=== PATIENT | female | born 1935 | race Caucasian/White ===

== ENCOUNTER 2021-11-13 18:39 | Inpatient (IN) | payer OTHER ==
[2021-11-13] MEDS ORDERED: METOPROLOL TARTRATE 25 MG TABLET (FP) PO ONE (19:25)
[2021-11-13] MEDS ORDERED: METOPROLOL TARTRATE 5 MG/5 ML VIAL IVPUSH ONE ×3 (19:25→19:59)
[2021-11-13] MEDS ORDERED: METOPROLOL TARTRATE 25 MG TABLET (FP) ONE (19:28)
[2021-11-13] MEDS ORDERED: METOPROLOL TARTRATE 5 MG/5 ML VIAL ONE ×3 (19:28→19:50)
[2021-11-13 19:58] LABS: CALCIUM 9.4 mg/dL (8.5-10.1)
[2021-11-13 19:59] LABS: ALBUMIN 3.3 g/dl (3.4-5.0); BLOOD UREA NITROGEN 22.8 mg/dL (7-18); MAGNESIUM 1.9 mg/dL (1.8-2.4)
[2021-11-13 20:02] LABS: CREATININE 0.8 mg/dL (0.55-1.3)
[2021-11-13 20:03] LABS: BILIRUBIN,TOTAL 1.2 mg/dL (0.2-1); TOT PROT 6.5 g/dl (6.4-8.2)
[2021-11-13 20:08] LABS: BASO % 0.3 % (0-2.0); EOS % 1.1 % (0-4.5); HEMATOCRIT 41.1 % (32.4-45.2); HEMOGLOBIN 13.7 GM/dL (10.7-15.3); LYMPH % 13.3 % (8-40); MCH 31.8 pg (25.7-33.7); MCHC 33.4 g/dl (32.0-36.0); MEAN CELL VOLUME 95.1 fl (80-96); MEAN PLT VOLUME 8.7 fl (7.5-11.1); MONO % 12.1 % (3.8-10.2); NEUT % 73.2 % (42.8-82.8); PLATELET COUNT 201 10^3/uL (134-434); RBC 4.32 M/mm3 (3.60-5.2); RDW 13.9 % (11.6-15.6); WHITE BLOOD COUNT 7.5 K/mm3 (4.0-10.0)
[2021-11-13] MEDS ORDERED: SOTALOL HCL 80 MG TABLET (FP) PO SCH (22:00)
[2021-11-13] MEDS ORDERED: OLANZapine 2.5 MG TABLET PO ONE (22:07)
[2021-11-13] MEDS ORDERED: dilTIAZem HCL 125 MG/25 ML - 25 ML VIAL ONE (22:11)
[2021-11-13] MEDS ORDERED: dilTIAZem HCL 50 MG/10 ML - 10 ML VIAL ONE (22:11)
[2021-11-13] MEDS ORDERED: OLANZapine 10 MG TABLET ONE (22:19)
[2021-11-13 23:06] LABS: EPI CELLS >36 /uL (0-25.1); HYALINE CASTS 3 /uL (0-3.1); PH,URINE 5.5 (5.0-8.0); URINE APPEARANCE CLEAR; URINE BACTERIA 132 /uL (0-1359); URINE BILIRUBIN NEGATIVE (NEGATIVE); URINE COLOR YELLOW; URINE GLUCOSE (UA) NEGATIVE (NEGATIVE); URINE KETONE 1+ (NEGATIVE); URINE LEUK ESTERASE NEGATIVE (NEGATIVE); URINE NITRITE NEGATIVE (NEGATIVE); URINE PROTEIN 1+ (NEGATIVE); URINE WBC 12 /uL (0-25.8)
[2021-11-13 23:25] LABS: URINE RBC 32.3 /uL (0-23.9)
[2021-11-13 23:50] VITALS: BMI 22.3
[2021-11-14] MEDS ORDERED: HALOPERIDOL LACTATE 5 MG/ML IM ONE (00:12)
[2021-11-14] MEDS: MUPIROCIN 2% TOPICAL OINTMENT FOR DECOLONIZATION NS SCH ×3 (03:59→22:26)
[2021-11-14] MEDS: SOTALOL HCL 80 MG TABLET (FP) PO SCH ×2 (04:16→12:09)
[2021-11-14] MEDS: LEVOTHYROXINE NA 25 MCG TABLET (FP) PO SCH ×2 (06:43→10:32)
[2021-11-14 07:07] LABS: HEMATOCRIT 42.4 % (32.4-45.2); HEMOGLOBIN 14.2 GM/dL (10.7-15.3); MCH 31.8 pg (25.7-33.7); MCHC 33.5 g/dl (32.0-36.0); MEAN PLT VOLUME 8.8 fl (7.5-11.1); PLATELET COUNT 204 10^3/uL (134-434); RBC 4.46 M/mm3 (3.60-5.2); RDW 14.1 % (11.6-15.6); WHITE BLOOD COUNT 8.8 K/mm3 (4.0-10.0)
[2021-11-14] MEDS ORDERED: PATIENT'S OWN MEDICATION (NON-FORMULARY) (Losartan/Hydrochlorothiazide [Losartan-Hctz 100- PO SCH (10:00)
[2021-11-14] MEDS: ROSUVASTATIN CA 10 MG TABLET PO SCH (10:32)
[2021-11-14] MEDS: RIVAROXABAN 20 MG TABLET PO SCH (10:49)
[2021-11-14] MEDS: LOSARTAN 50MG/HCTZ 12.5MG 1 TAB PO SCH (12:09)
[2021-11-14] MEDS ORDERED: cefTRIAXone SODIUM 1 GM VIAL ONE (12:10)
[2021-11-14] MEDS ORDERED: DEXTROSE 5%-WATER - 50 ML IVPB ONE (12:10)
[2021-11-14] MEDS: CEFTRIAXONE 1 GM in DEXTROSE 5%-WATER - 50 ML IVPB SCH (12:11)
[2021-11-14] MEDS ORDERED: METOPROLOL TARTRATE 50 MG TABLET (FP) PO SCH (13:15)
[2021-11-14 14:07] LABS: SARS-CoV-2 NAA Not Detected (Not Detected)
[2021-11-14] MEDS: DOPAMINE 400 MG/D5W - 400,000 MCG/250 ML INFUS.BAG IVPB SCH (16:49)
[2021-11-14] MEDS: LACTATED RINGERS SOLUTION 1,000 ML/1,000 ML INFUS.BAG IV SCH (20:15)
[2021-11-14] MEDS ORDERED: GABAPENTIN 300 MG CAPSULE PO SCH (22:00)
[2021-11-14] MEDS: METOPROLOL TARTRATE 50 MG TABLET (FP) PO SCH ×2 (22:27→22:33)
[2021-11-14] MEDS: CHLORHEXIDINE GLUCONATE 4% CLEANSER FOR DECOLONIZATION TP SCH (22:27)
[2021-11-14] MEDS: LATANOPROST 0.005% OPHTH SOLN 2.5ML BOTTLE OU SCH (22:27)
[2021-11-15] MEDS: LEVOTHYROXINE NA 25 MCG TABLET (FP) PO SCH ×2 (06:32→13:01)
[2021-11-15 07:05] LABS: BASO % 0.3 % (0-2.0); EOS % 0.3 % (0-4.5); HEMATOCRIT 44.1 % (32.4-45.2); HEMOGLOBIN 14.8 GM/dL (10.7-15.3); MCH 31.7 pg (25.7-33.7); MCHC 33.5 g/dl (32.0-36.0); MEAN CELL VOLUME 94.6 fl (80-96); MEAN PLT VOLUME 9.1 fl (7.5-11.1); MONO % 7.8 % (3.8-10.2); NEUT % 79.6 % (42.8-82.8); PLATELET COUNT 211 10^3/uL (134-434); RBC 4.66 M/mm3 (3.60-5.2); RDW 13.9 % (11.6-15.6); WHITE BLOOD COUNT 8.2 K/mm3 (4.0-10.0)
[2021-11-15 07:26] LABS: CALCIUM 9.8 mg/dL (8.5-10.1)
[2021-11-15 07:27] LABS: ALBUMIN 3.4 g/dl (3.4-5.0); BLOOD UREA NITROGEN 18.9 mg/dL (7-18)
[2021-11-15 07:31] LABS: BILIRUBIN,TOTAL 1.2 mg/dL (0.2-1); CREATININE 0.6 mg/dL (0.55-1.3); TOT PROT 6.8 g/dl (6.4-8.2)
[2021-11-15] MEDS: LACTATED RINGERS SOLUTION 1,000 ML/1,000 ML INFUS.BAG IV SCH ×2 (08:05→18:00)
[2021-11-15] MEDS ORDERED: DEXTROSE 5%-WATER - 50 ML IVPB ONE (09:11)
[2021-11-15] MEDS ORDERED: cefTRIAXone SODIUM 1 GM VIAL ONE (09:11)
[2021-11-15] MEDS: METOPROLOL TARTRATE 50 MG TABLET (FP) PO SCH ×2 (10:25→22:57)
[2021-11-15] MEDS: CEFTRIAXONE 1 GM in DEXTROSE 5%-WATER - 50 ML IVPB SCH (10:25)
[2021-11-15] MEDS: MUPIROCIN 2% TOPICAL OINTMENT FOR DECOLONIZATION NS SCH ×2 (10:37→22:55)
[2021-11-15] MEDS: LOSARTAN 50MG/HCTZ 12.5MG 1 TAB PO SCH (11:01)
[2021-11-15] MEDS: ROSUVASTATIN CA 10 MG TABLET PO SCH (13:01)
[2021-11-15] MEDS ORDERED: HYDROCHLOROTHIAZIDE 12.5 MG CAPSULE (FP) PO ONE (18:10)
[2021-11-15] MEDS: DOPAMINE 400 MG/D5W - 400,000 MCG/250 ML INFUS.BAG IVPB SCH (18:20)
[2021-11-15] MEDS ORDERED: MELATONIN 5 MG TABLETS PO ONE (22:48)
[2021-11-15] MEDS: LATANOPROST 0.005% OPHTH SOLN 2.5ML BOTTLE OU SCH (22:55)
[2021-11-15] MEDS: CHLORHEXIDINE GLUCONATE 4% CLEANSER FOR DECOLONIZATION TP SCH (22:55)
[2021-11-16] MEDS ORDERED: dilTIAZem HCL 50 MG/10 ML - 10 ML VIAL IVPUSH ONE ×2 (05:08→08:38)
[2021-11-16] MEDS ORDERED: dilTIAZem HCL 125 MG/25 ML - 25 ML VIAL ONE (05:14)
[2021-11-16] MEDS: LEVOTHYROXINE NA 25 MCG TABLET (FP) PO SCH (06:25)
[2021-11-16 06:51] LABS: HEMOGLOBIN 13.5 GM/dL (10.7-15.3); MCH 31.4 pg (25.7-33.7); MEAN CELL VOLUME 95.2 fl (80-96); PLATELET COUNT 177 10^3/uL (134-434); RDW 13.7 % (11.6-15.6); WHITE BLOOD COUNT 7.9 K/mm3 (4.0-10.0)
[2021-11-16 07:15] LABS: ALBUMIN 2.7 g/dl (3.4-5.0); BLOOD UREA NITROGEN 17.4 mg/dL (7-18); MAGNESIUM 1.6 mg/dL (1.8-2.4)
[2021-11-16 07:18] LABS: CREATININE 0.7 mg/dL (0.55-1.3)
[2021-11-16 07:19] LABS: BILIRUBIN,TOTAL 0.9 mg/dL (0.2-1); TOT PROT 5.7 g/dl (6.4-8.2)
[2021-11-16 07:22] LABS: PHOSPHOROUS 2.8 mg/dL (2.5-4.9)
[2021-11-16] MEDS ORDERED: METOPROLOL TARTRATE 5 MG/5 ML VIAL IVPUSH ONE (07:29)
[2021-11-16] MEDS: METOPROLOL TARTRATE 50 MG TABLET (FP) PO SCH ×4 (07:48→21:24)
[2021-11-16] MEDS ORDERED: MAGNESIUM 1GM/D5W 100ML - 100 ML IVPB IVPB ONE (08:34)
[2021-11-16] MEDS ORDERED: cefTRIAXone SODIUM 1 GM VIAL ONE (08:59)
[2021-11-16] MEDS ORDERED: DEXTROSE 5%-WATER - 50 ML IVPB ONE (08:59)
[2021-11-16] MEDS: CEFTRIAXONE 1 GM in DEXTROSE 5%-WATER - 50 ML IVPB SCH (09:14)
[2021-11-16] MEDS: MUPIROCIN 2% TOPICAL OINTMENT FOR DECOLONIZATION NS SCH ×2 (09:15→22:05)
[2021-11-16] MEDS: RIVAROXABAN 20 MG TABLET PO SCH (09:15)
[2021-11-16] MEDS: ROSUVASTATIN CA 10 MG TABLET PO SCH (09:15)
[2021-11-16] MEDS: LOSARTAN 50MG/HCTZ 12.5MG 1 TAB PO SCH (09:24)
[2021-11-16] MEDS: AMIODARONE HCL 200 MG TABLET PO SCH ×2 (12:03→21:24)
[2021-11-16] MEDS: CHLORHEXIDINE GLUCONATE 4% CLEANSER FOR DECOLONIZATION TP SCH (22:44)
[2021-11-16] MEDS: LATANOPROST 0.005% OPHTH SOLN 2.5ML BOTTLE OU SCH (22:44)
[2021-11-17] MEDS: METOPROLOL TARTRATE 50 MG TABLET (FP) PO SCH ×3 (05:42→21:37)
[2021-11-17] MEDS: LEVOTHYROXINE NA 25 MCG TABLET (FP) PO SCH (06:49)
[2021-11-17 07:48] LABS: HEMATOCRIT 45.6 % (32.4-45.2); HEMOGLOBIN 15.6 GM/dL (10.7-15.3); MCH 32.3 pg (25.7-33.7); MCHC 34.2 g/dl (32.0-36.0); MEAN CELL VOLUME 94.6 fl (80-96); MEAN PLT VOLUME 8.6 fl (7.5-11.1); PLATELET COUNT 169 10^3/uL (134-434); RBC 4.82 M/mm3 (3.60-5.2); RDW 13.7 % (11.6-15.6); WHITE BLOOD COUNT 6.8 K/mm3 (4.0-10.0)
[2021-11-17 08:21] LABS: ALBUMIN 2.8 g/dl (3.4-5.0); BLOOD UREA NITROGEN 14.3 mg/dL (7-18); CALCIUM 9.2 mg/dL (8.5-10.1)
[2021-11-17 08:22] LABS: MAGNESIUM 1.9 mg/dL (1.8-2.4)
[2021-11-17 08:24] LABS: CREATININE 0.6 mg/dL (0.55-1.3); PHOSPHOROUS 3.1 mg/dL (2.5-4.9)
[2021-11-17 08:26] LABS: BILIRUBIN,TOTAL 1.4 mg/dL (0.2-1)
[2021-11-17] MEDS ORDERED: DEXTROSE 5%-WATER - 50 ML IVPB ONE (09:05)
[2021-11-17] MEDS ORDERED: cefTRIAXone SODIUM 1 GM VIAL ONE (09:05)
[2021-11-17] MEDS: RIVAROXABAN 20 MG TABLET PO SCH (09:16)
[2021-11-17] MEDS: AMIODARONE HCL 200 MG TABLET PO SCH ×2 (09:16→22:44)
[2021-11-17] MEDS: ROSUVASTATIN CA 10 MG TABLET PO SCH (09:16)
[2021-11-17] MEDS: CEFTRIAXONE 1 GM in DEXTROSE 5%-WATER - 50 ML IVPB SCH (09:16)
[2021-11-17] MEDS: LOSARTAN 50MG/HCTZ 12.5MG 1 TAB PO SCH (09:16)
[2021-11-17] MEDS: MUPIROCIN 2% TOPICAL OINTMENT FOR DECOLONIZATION NS SCH (09:24)
[2021-11-17] MEDS: LACTATED RINGERS SOLUTION 1,000 ML/1,000 ML INFUS.BAG IV SCH (21:07)
[2021-11-17] MEDS: LATANOPROST 0.005% OPHTH SOLN 2.5ML BOTTLE OU SCH (22:44)
[2021-11-18] MEDS: METOPROLOL TARTRATE 50 MG TABLET (FP) PO SCH ×3 (06:08→22:13)
[2021-11-18] MEDS: LEVOTHYROXINE NA 25 MCG TABLET (FP) PO SCH (06:14)
[2021-11-18 08:24] LABS: BASO % 0.4 % (0-2.0); HEMATOCRIT 41.7 % (32.4-45.2); HEMOGLOBIN 14.1 GM/dL (10.7-15.3); LYMPH % 16.5 % (8-40); MCH 32.1 pg (25.7-33.7); MEAN CELL VOLUME 94.6 fl (80-96); MEAN PLT VOLUME 8.9 fl (7.5-11.1); MONO % 13.9 % (3.8-10.2); NEUT % 65.2 % (42.8-82.8); PLATELET COUNT 176 10^3/uL (134-434); RDW 13.8 % (11.6-15.6); WHITE BLOOD COUNT 6.6 K/mm3 (4.0-10.0)
[2021-11-18 08:46] LABS: ALBUMIN 2.7 g/dl (3.4-5.0); BLOOD UREA NITROGEN 20.4 mg/dL (7-18); CREATININE 0.6 mg/dL (0.55-1.3)
[2021-11-18 08:47] LABS: BILIRUBIN,TOTAL 0.8 mg/dL (0.2-1); TOT PROT 5.6 g/dl (6.4-8.2)
[2021-11-18 08:48] LABS: CALCIUM 9.1 mg/dL (8.5-10.1)
[2021-11-18] MEDS ORDERED: cefTRIAXone SODIUM 1 GM VIAL ONE (10:45)
[2021-11-18] MEDS ORDERED: DEXTROSE 5%-WATER - 50 ML IVPB ONE (10:45)
[2021-11-18] MEDS: ROSUVASTATIN CA 10 MG TABLET PO SCH (10:54)
[2021-11-18] MEDS: AMIODARONE HCL 200 MG TABLET PO SCH ×2 (10:54→22:13)
[2021-11-18] MEDS: LOSARTAN 50MG/HCTZ 12.5MG 1 TAB PO SCH (10:54)
[2021-11-18] MEDS: CEFTRIAXONE 1 GM in DEXTROSE 5%-WATER - 50 ML IVPB SCH (10:55)
[2021-11-18] MEDS: RIVAROXABAN 20 MG TABLET PO SCH (18:10)
[2021-11-18] MEDS: LATANOPROST 0.005% OPHTH SOLN 2.5ML BOTTLE OU SCH (22:14)
[2021-11-19] MEDS: LEVOTHYROXINE NA 25 MCG TABLET (FP) PO SCH (06:46)
[2021-11-19] MEDS: METOPROLOL TARTRATE 50 MG TABLET (FP) PO SCH ×3 (06:46→21:44)
[2021-11-19 07:57] LABS: HEMATOCRIT 41.5 % (32.4-45.2); HEMOGLOBIN 14.2 GM/dL (10.7-15.3); MCH 32.4 pg (25.7-33.7); MCHC 34.2 g/dl (32.0-36.0); MEAN CELL VOLUME 94.9 fl (80-96); MEAN PLT VOLUME 8.9 fl (7.5-11.1); PLATELET COUNT 168 10^3/uL (134-434); RBC 4.37 M/mm3 (3.60-5.2); RDW 13.7 % (11.6-15.6); WHITE BLOOD COUNT 6.3 K/mm3 (4.0-10.0)
[2021-11-19 08:14] LABS: ALBUMIN 2.8 g/dl (3.4-5.0); CALCIUM 9.2 mg/dL (8.5-10.1)
[2021-11-19 08:15] LABS: BLOOD UREA NITROGEN 23.1 mg/dL (7-18)
[2021-11-19 08:17] LABS: CREATININE 0.7 mg/dL (0.55-1.3)
[2021-11-19 08:19] LABS: BILIRUBIN,TOTAL 0.8 mg/dL (0.2-1); TOT PROT 5.9 g/dl (6.4-8.2)
[2021-11-19] MEDS ORDERED: cefTRIAXone SODIUM 1 GM VIAL ONE (10:00)
[2021-11-19] MEDS ORDERED: DEXTROSE 5%-WATER - 50 ML IVPB ONE (10:00)
[2021-11-19] MEDS: ROSUVASTATIN CA 10 MG TABLET PO SCH (10:35)
[2021-11-19] MEDS: LOSARTAN 50MG/HCTZ 12.5MG 1 TAB PO SCH (10:35)
[2021-11-19] MEDS: CEFTRIAXONE 1 GM in DEXTROSE 5%-WATER - 50 ML IVPB SCH (10:36)
[2021-11-19] MEDS: AMIODARONE HCL 200 MG TABLET PO SCH ×2 (10:36→21:44)
[2021-11-19] MEDS: RIVAROXABAN 20 MG TABLET PO SCH (18:26)
[2021-11-19] MEDS: LACTATED RINGERS SOLUTION 1,000 ML/1,000 ML INFUS.BAG IV SCH ×2 (18:28→21:44)
[2021-11-19] MEDS: LATANOPROST 0.005% OPHTH SOLN 2.5ML BOTTLE OU SCH (21:47)
[2021-11-20] MEDS: LACTATED RINGERS SOLUTION 1,000 ML/1,000 ML INFUS.BAG IV SCH ×3 (04:57→20:56)
[2021-11-20] MEDS: METOPROLOL TARTRATE 50 MG TABLET (FP) PO SCH ×3 (07:07→21:16)
[2021-11-20] MEDS: LEVOTHYROXINE NA 25 MCG TABLET (FP) PO SCH (07:08)
[2021-11-20] MEDS: ROSUVASTATIN CA 10 MG TABLET PO SCH (10:35)
[2021-11-20] MEDS: LOSARTAN 50MG/HCTZ 12.5MG 1 TAB PO SCH (10:35)
[2021-11-20] MEDS: CEFTRIAXONE 1 GM in DEXTROSE 5%-WATER - 50 ML IVPB SCH (10:35)
[2021-11-20] MEDS: AMIODARONE HCL 200 MG TABLET PO SCH (10:35)
[2021-11-20] MEDS ORDERED: cefTRIAXone SODIUM 1 GM VIAL ONE (10:43)
[2021-11-20] MEDS ORDERED: DEXTROSE 5%-WATER - 50 ML IVPB ONE (10:43)
[2021-11-20] MEDS: RIVAROXABAN 20 MG TABLET PO SCH (17:54)
[2021-11-20] MEDS: LATANOPROST 0.005% OPHTH SOLN 2.5ML BOTTLE OU SCH (21:17)
[2021-11-21] MEDS: METOPROLOL TARTRATE 50 MG TABLET (FP) PO SCH ×3 (05:36→21:54)
[2021-11-21] MEDS: LEVOTHYROXINE NA 25 MCG TABLET (FP) PO SCH ×2 (05:46→06:12)
[2021-11-21] MEDS ORDERED: cefTRIAXone SODIUM 1 GM VIAL ONE (09:47)
[2021-11-21] MEDS ORDERED: DEXTROSE 5%-WATER - 50 ML IVPB ONE (09:47)
[2021-11-21] MEDS: ROSUVASTATIN CA 10 MG TABLET PO SCH (09:50)
[2021-11-21] MEDS: LOSARTAN 50MG/HCTZ 12.5MG 1 TAB PO SCH (09:50)
[2021-11-21] MEDS: AMIODARONE HCL 200 MG TABLET PO SCH (09:50)
[2021-11-21] MEDS: CEFTRIAXONE 1 GM in DEXTROSE 5%-WATER - 50 ML IVPB SCH (09:51)
[2021-11-21] MEDS: RIVAROXABAN 20 MG TABLET PO SCH (18:05)
[2021-11-21] MEDS: LACTATED RINGERS SOLUTION 1,000 ML/1,000 ML INFUS.BAG IV SCH (21:47)
[2021-11-21] MEDS: LATANOPROST 0.005% OPHTH SOLN 2.5ML BOTTLE OU SCH (21:54)
[2021-11-22] MEDS: LEVOTHYROXINE NA 25 MCG TABLET (FP) PO SCH ×2 (05:39→06:18)
[2021-11-22] MEDS: METOPROLOL TARTRATE 50 MG TABLET (FP) PO SCH ×3 (05:39→22:00)
[2021-11-22] MEDS: LACTATED RINGERS SOLUTION 1,000 ML/1,000 ML INFUS.BAG IV SCH (05:39)
[2021-11-22] MEDS ORDERED: PANTOPRAZOLE SODIUM 40 MG VIAL IVPUSH ONE (05:45)
[2021-11-22 08:31] LABS: CALCIUM 9.1 mg/dL (8.5-10.1)
[2021-11-22 08:32] LABS: ALBUMIN 2.7 g/dl (3.4-5.0)
[2021-11-22 08:36] LABS: BILIRUBIN,TOTAL 0.6 mg/dL (0.2-1); TOT PROT 5.8 g/dl (6.4-8.2)
[2021-11-22 08:40] LABS: CREATININE 0.9 mg/dL (0.55-1.3)
[2021-11-22] MEDS ORDERED: DEXTROSE 5%-WATER - 50 ML IVPB ONE (10:00)
[2021-11-22] MEDS ORDERED: cefTRIAXone SODIUM 1 GM VIAL ONE (10:00)
[2021-11-22] MEDS: ROSUVASTATIN CA 10 MG TABLET PO SCH (10:11)
[2021-11-22] MEDS: AMIODARONE HCL 200 MG TABLET PO SCH (10:11)
[2021-11-22] MEDS: LOSARTAN 50MG/HCTZ 12.5MG 1 TAB PO SCH (10:11)
[2021-11-22] MEDS: CEFTRIAXONE 1 GM in DEXTROSE 5%-WATER - 50 ML IVPB SCH (10:12)
[2021-11-22 12:07] LABS: BASO % 0.3 % (0-2.0); EOS % 1.8 % (0-4.5); HEMATOCRIT 46.2 % (32.4-45.2); HEMOGLOBIN 15.5 GM/dL (10.7-15.3); LYMPH % 12.5 % (8-40); MCH 31.7 pg (25.7-33.7); MCHC 33.5 g/dl (32.0-36.0); MEAN CELL VOLUME 94.8 fl (80-96); MEAN PLT VOLUME 9.4 fl (7.5-11.1); MONO % 10.9 % (3.8-10.2); NEUT % 74.5 % (42.8-82.8); PLATELET COUNT 196 10^3/uL (134-434); RBC 4.87 M/mm3 (3.60-5.2); RDW 13.8 % (11.6-15.6); WHITE BLOOD COUNT 10.2 K/mm3 (4.0-10.0)
[2021-11-22 12:46] LABS: INR 2.71 (0.83-1.09); PROTHROMBIN TIME (PATIENT) 31.5 SEC (9.7-13.0)
[2021-11-22] MEDS: ALPRAZolam 0.25 MG TABLET PO PRN (18:51)
[2021-11-22] MEDS: RIVAROXABAN 20 MG TABLET PO SCH (18:51)
[2021-11-22] MEDS ORDERED: oxyCODONE HCL 5 MG TABLET PO PRN (21:32)
[2021-11-22] MEDS ORDERED: ACETAMINOPHEN 325 MG TABLET (FP) PO PRN (21:45)
[2021-11-22] MEDS: LATANOPROST 0.005% OPHTH SOLN 2.5ML BOTTLE OU SCH (22:03)
[2021-11-23] MEDS: LACTATED RINGERS SOLUTION 1,000 ML/1,000 ML INFUS.BAG IV SCH ×2 (00:13→21:35)
[2021-11-23] MEDS: METOPROLOL TARTRATE 50 MG TABLET (FP) PO SCH ×3 (06:03→21:35)
[2021-11-23] MEDS: LEVOTHYROXINE NA 25 MCG TABLET (FP) PO SCH (06:03)
[2021-11-23] MEDS ORDERED: DEXTROSE 5%-WATER - 50 ML IVPB ONE (10:00)
[2021-11-23] MEDS ORDERED: cefTRIAXone SODIUM 1 GM VIAL ONE (10:00)
[2021-11-23] MEDS: CEFTRIAXONE 1 GM in DEXTROSE 5%-WATER - 50 ML IVPB SCH (10:04)
[2021-11-23] MEDS: AMIODARONE HCL 200 MG TABLET PO SCH (10:04)
[2021-11-23] MEDS: ROSUVASTATIN CA 10 MG TABLET PO SCH (10:04)
[2021-11-23] MEDS: LOSARTAN 50MG/HCTZ 12.5MG 1 TAB PO SCH (10:04)
[2021-11-23 14:12] LABS: SARS-CoV-2 NAA Not Detected (Not Detected)
[2021-11-23] MEDS: RIVAROXABAN 20 MG TABLET PO SCH (18:49)
[2021-11-23] MEDS: ALPRAZolam 0.25 MG TABLET PO PRN (21:35)
[2021-11-23] MEDS: LATANOPROST 0.005% OPHTH SOLN 2.5ML BOTTLE OU SCH (21:37)
[2021-11-24] MEDS: METOPROLOL TARTRATE 50 MG TABLET (FP) PO SCH ×3 (06:35→21:40)
[2021-11-24] MEDS: LEVOTHYROXINE NA 25 MCG TABLET (FP) PO SCH (06:35)
[2021-11-24] MEDS ORDERED: DEXTROSE 5%-WATER - 50 ML IVPB ONE ×2 (09:21→09:48)
[2021-11-24] MEDS ORDERED: cefTRIAXone SODIUM 1 GM VIAL ONE ×2 (09:21→09:46)
[2021-11-24] MEDS: CEFTRIAXONE 1 GM in DEXTROSE 5%-WATER - 50 ML IVPB SCH (09:50)
[2021-11-24] MEDS: AMIODARONE HCL 200 MG TABLET PO SCH ×2 (10:05→12:37)
[2021-11-24] MEDS: ROSUVASTATIN CA 10 MG TABLET PO SCH ×2 (10:06→12:40)
[2021-11-24] MEDS: LOSARTAN 50MG/HCTZ 12.5MG 1 TAB PO SCH ×2 (10:06→12:41)
[2021-11-24] MEDS: RIVAROXABAN 20 MG TABLET PO SCH (17:17)
[2021-11-24] MEDS: LACTATED RINGERS SOLUTION 1,000 ML/1,000 ML INFUS.BAG IV SCH (21:37)
[2021-11-24] MEDS: LATANOPROST 0.005% OPHTH SOLN 2.5ML BOTTLE OU SCH (21:41)
[2021-11-25] MEDS: METOPROLOL TARTRATE 50 MG TABLET (FP) PO SCH ×3 (06:09→21:57)
[2021-11-25] MEDS: LEVOTHYROXINE NA 25 MCG TABLET (FP) PO SCH (06:09)
[2021-11-25] MEDS ORDERED: cefTRIAXone SODIUM 1 GM VIAL ONE (09:52)
[2021-11-25] MEDS ORDERED: DEXTROSE 5%-WATER - 50 ML IVPB ONE (09:53)
[2021-11-25] MEDS: LOSARTAN 50MG/HCTZ 12.5MG 1 TAB PO SCH (09:57)
[2021-11-25] MEDS: ROSUVASTATIN CA 10 MG TABLET PO SCH (09:57)
[2021-11-25] MEDS: AMIODARONE HCL 200 MG TABLET PO SCH (09:57)
[2021-11-25] MEDS: CEFTRIAXONE 1 GM in DEXTROSE 5%-WATER - 50 ML IVPB SCH (09:59)
[2021-11-25] MEDS: ALPRAZolam 0.25 MG TABLET PO PRN (16:56)
[2021-11-25] MEDS: RIVAROXABAN 20 MG TABLET PO SCH (17:09)
[2021-11-25] MEDS: LACTATED RINGERS SOLUTION 1,000 ML/1,000 ML INFUS.BAG IV SCH (21:58)
[2021-11-25] MEDS: LATANOPROST 0.005% OPHTH SOLN 2.5ML BOTTLE OU SCH (21:58)
[2021-11-25] MEDS ORDERED: PANTOPRAZOLE SODIUM 40 MG VIAL IVPUSH ONE (23:00)
[2021-11-26] MEDS ORDERED: ACETAMINOPHEN 325 MG TABLET (FP) PO PRN (00:28)
[2021-11-26] MEDS: LEVOTHYROXINE NA 25 MCG TABLET (FP) PO SCH (06:22)
[2021-11-26] MEDS: METOPROLOL TARTRATE 50 MG TABLET (FP) PO SCH ×3 (06:23→21:30)
[2021-11-26] MEDS: ROSUVASTATIN CA 10 MG TABLET PO SCH (12:35)
[2021-11-26] MEDS: LOSARTAN 50MG/HCTZ 12.5MG 1 TAB PO SCH (12:35)
[2021-11-26] MEDS: AMIODARONE HCL 200 MG TABLET PO SCH (12:36)
[2021-11-26] MEDS: RIVAROXABAN 20 MG TABLET PO SCH (17:43)
[2021-11-26] MEDS: LATANOPROST 0.005% OPHTH SOLN 2.5ML BOTTLE OU SCH (21:30)
[2021-11-27] MEDS: METOPROLOL TARTRATE 50 MG TABLET (FP) PO SCH ×3 (05:37→23:05)
[2021-11-27] MEDS: LEVOTHYROXINE NA 25 MCG TABLET (FP) PO SCH (06:01)
[2021-11-27] MEDS: AMIODARONE HCL 200 MG TABLET PO SCH (09:34)
[2021-11-27] MEDS: LOSARTAN 50MG/HCTZ 12.5MG 1 TAB PO SCH (09:35)
[2021-11-27] MEDS: ROSUVASTATIN CA 10 MG TABLET PO SCH (09:35)
[2021-11-27] MEDS: RIVAROXABAN 20 MG TABLET PO SCH (17:24)
[2021-11-27] MEDS: LATANOPROST 0.005% OPHTH SOLN 2.5ML BOTTLE OU SCH (23:05)
[2021-11-28] MEDS: LEVOTHYROXINE NA 25 MCG TABLET (FP) PO SCH (07:08)
[2021-11-28] MEDS: METOPROLOL TARTRATE 50 MG TABLET (FP) PO SCH ×3 (07:08→22:23)
[2021-11-28] MEDS: AMIODARONE HCL 200 MG TABLET PO SCH (09:37)
[2021-11-28] MEDS: ROSUVASTATIN CA 10 MG TABLET PO SCH (09:37)
[2021-11-28] MEDS: LOSARTAN 50MG/HCTZ 12.5MG 1 TAB PO SCH (09:37)
[2021-11-28] MEDS: RIVAROXABAN 20 MG TABLET PO SCH (17:46)
[2021-11-28] MEDS: LATANOPROST 0.005% OPHTH SOLN 2.5ML BOTTLE OU SCH (22:23)
[2021-11-29] MEDS: LEVOTHYROXINE NA 25 MCG TABLET (FP) PO SCH (06:23)
[2021-11-29] MEDS: METOPROLOL TARTRATE 50 MG TABLET (FP) PO SCH ×3 (06:23→23:10)
[2021-11-29] MEDS: LOSARTAN 50MG/HCTZ 12.5MG 1 TAB PO SCH (10:23)
[2021-11-29] MEDS: AMIODARONE HCL 200 MG TABLET PO SCH (10:23)
[2021-11-29] MEDS: ROSUVASTATIN CA 10 MG TABLET PO SCH (10:23)
[2021-11-29] MEDS: RIVAROXABAN 20 MG TABLET PO SCH (17:17)
[2021-11-29] MEDS: LATANOPROST 0.005% OPHTH SOLN 2.5ML BOTTLE OU SCH (23:11)
[2021-11-30] MEDS: METOPROLOL TARTRATE 50 MG TABLET (FP) PO SCH ×3 (06:59→22:32)
[2021-11-30] MEDS: LEVOTHYROXINE NA 25 MCG TABLET (FP) PO SCH (06:59)
[2021-11-30] MEDS: LOSARTAN 50MG/HCTZ 12.5MG 1 TAB PO SCH (11:31)
[2021-11-30] MEDS: AMIODARONE HCL 200 MG TABLET PO SCH ×2 (11:31→22:32)
[2021-11-30] MEDS: ROSUVASTATIN CA 10 MG TABLET PO SCH (11:31)
[2021-11-30] MEDS: RIVAROXABAN 20 MG TABLET PO SCH (17:18)
[2021-11-30] MEDS: LATANOPROST 0.005% OPHTH SOLN 2.5ML BOTTLE OU SCH (22:32)
[2021-12-01] MEDS: LEVOTHYROXINE NA 25 MCG TABLET (FP) PO SCH (06:16)
[2021-12-01] MEDS: METOPROLOL TARTRATE 50 MG TABLET (FP) PO SCH ×3 (06:16→22:16)
[2021-12-01] MEDS: ROSUVASTATIN CA 10 MG TABLET PO SCH (10:34)
[2021-12-01] MEDS: AMIODARONE HCL 200 MG TABLET PO SCH ×2 (10:34→22:16)
[2021-12-01] MEDS: LOSARTAN 50MG/HCTZ 12.5MG 1 TAB PO SCH (10:35)
[2021-12-01 15:53] LABS: HEMATOCRIT 41.8 % (32.4-45.2); HEMOGLOBIN 14.2 GM/dL (10.7-15.3); MCH 31.8 pg (25.7-33.7); MEAN CELL VOLUME 93.6 fl (80-96); MEAN PLT VOLUME 9.7 fl (7.5-11.1); PLATELET COUNT 182 10^3/uL (134-434); RBC 4.47 M/mm3 (3.60-5.2); RDW 14.1 % (11.6-15.6); WHITE BLOOD COUNT 7.2 K/mm3 (4.0-10.0)
[2021-12-01] MEDS: RIVAROXABAN 20 MG TABLET PO SCH (18:48)
[2021-12-01] MEDS: LATANOPROST 0.005% OPHTH SOLN 2.5ML BOTTLE OU SCH (22:16)
[2021-12-02] MEDS: LEVOTHYROXINE NA 25 MCG TABLET (FP) PO SCH (06:26)
[2021-12-02] MEDS: METOPROLOL TARTRATE 50 MG TABLET (FP) PO SCH ×3 (06:26→21:54)
[2021-12-02] MEDS: AMIODARONE HCL 200 MG TABLET PO SCH ×2 (09:30→21:55)
[2021-12-02] MEDS: ROSUVASTATIN CA 10 MG TABLET PO SCH (09:30)
[2021-12-02] MEDS: PANTOPRAZOLE 20 MG TABLET PO SCH (09:30)
[2021-12-02] MEDS: LOSARTAN 50MG/HCTZ 12.5MG 1 TAB PO SCH (13:01)
[2021-12-02] MEDS: RIVAROXABAN 20 MG TABLET PO SCH (18:35)
[2021-12-02] MEDS: LATANOPROST 0.005% OPHTH SOLN 2.5ML BOTTLE OU SCH (21:55)
[2021-12-03] MEDS: METOPROLOL TARTRATE 50 MG TABLET (FP) PO SCH ×2 (06:17→15:23)
[2021-12-03] MEDS: LEVOTHYROXINE NA 25 MCG TABLET (FP) PO SCH (06:17)
[2021-12-03] MEDS: AMIODARONE HCL 200 MG TABLET PO SCH (09:37)
[2021-12-03] MEDS: ROSUVASTATIN CA 10 MG TABLET PO SCH (09:37)
[2021-12-03] MEDS: PANTOPRAZOLE 20 MG TABLET PO SCH (09:37)
[2021-12-03] MEDS: LOSARTAN 50MG/HCTZ 12.5MG 1 TAB PO SCH (09:37)
[2021-12-03 14:50] VITALS: BP 107/54; PULSE 97; TEMP 97.6
== END 2021-12-03 15:25 | DRG 308 ==
LOC: JER 18:39 → JERBED 22:36 → JICU 23:20 → J4W 11-17 18:10 → J5S 11-26 00:01
PROVIDERS: ADMIT Internal Medicine Pulmonary Disease; ATTEND Internal Medicine
DX: I48.19 Other persistent atrial fibrillation (principal); G93.41 Metabolic encephalopathy; K56.600 Partial intestinal obstruction, unspecified as to cause; K92.0 Hematemesis; I50.32 Chronic diastolic (congestive) heart failure; N39.0 Urinary tract infection, site not specified; K56.7 Ileus, unspecified; I10 Essential (primary) hypertension; I11.0 Hypertensive heart disease with heart failure; E78.00 Pure hypercholesterolemia, unspecified; E03.9 Hypothyroidism, unspecified; I25.10 Atherosclerotic heart disease of native coronary artery without angina pectoris; F03.90 Unspecified dementia, unspecified severity, without behavioral disturbance, psychotic disturbance, mood disturbance, and anxiety; I25.119 Atherosclerotic heart disease of native coronary artery with unspecified angina pectoris; I35.1 Nonrheumatic aortic (valve) insufficiency; R00.1 Bradycardia, unspecified; T40.605A Adverse effect of unspecified narcotics, initial encounter; W18.39XA Other fall on same level, initial encounter; Y92.89 Other specified places as the place of occurrence of the external cause
CPT/HCPCS: 36415; 70450-TC; 71045-TC-FY; 72125-TC; 74018-TC-FY; 74019-TC-FY; 74176-TC; 74230-TC-FY; 80053; 81003; 82550; 82607; 82962; 83735; 84100; 84443; 84484; 85025; 85027; 85610; 87040; 87086; 92611-GN; 93005; 93010; 97116-GP; 97161-GP; 99285-25; C9803-CS; U0003; U0005